=== PATIENT | female | born 1990 | race Caucasian/White ===

== ENCOUNTER 2018-09-12 18:53 | Observation (INO) | payer SELFPAY ==
[2018-09-12 22:11] LABS: #Eosinphils 0.3 thou/uL (0.0-0.7); #Monocytes 0.9 thou/uL (0.11-0.59); #Neutrophils 4.6 thou/uL (1.40-6.50); %Basophils 0.5 % (0.0-1.0); %Eosinophils 4.1 % (0.0-10.0); %Monocytes 11.8 % (0.0-10.0); %Neutrophils 58.7 % (42.0-75.0); Hemoglobin 11.6 g/dL (12.0-16.0); Mean Corpuscular Hemoglobin 31.9 pg (27.0-31.0); Mean Corpuscular Volume 96.4 fL (78.0-98.0); Mean Platelet Volume 6.6 fL (7.4-10.4); Platelet Count 292 thou/uL (130-400); RBC Distribution Width 12.5 % (11.5-14.5); Red Blood Cell (RBC) Count 3.64 mill/uL (4.20-5.40); White Blood Cell (WBC) Count 7.9 thou/uL (4.8-10.8)
[2018-09-12 22:19] LABS: BHCG - Serum Negative (NEGATIVE); Pregs Control Background? CLEAR/WHITE (CLR/WHITE); Pregs Control Bar Appear? YES (CONTROL BAR)
[2018-09-12 22:35] LABS: ALT (SGPT) 9 U/L (8-55); AST (SGOT) 22 U/L (5-34); Albumin 4.6 g/dL (3.5-5.0); Alkaline Phosphatase 62 U/L (40-150); Anion Gap 10 mmol/L (10-20); BUN (Urea Nitrogen) 15 mg/dL (7.0-18.7); Bilirubin, Total 0.6 mg/dL (0.2-1.2); Calc. Creatinine Clearance 0 mL/min (70-130); Calcium 9.4 mg/dL (7.8-10.44); Carbon Dioxide 28 mmol/L (22-29); Chloride 99 mmol/L (98-107); Estimated GFR-MDRD 90; Globulin 2.6 g/dL (2.4-3.5); Glucose 96 mg/dL (70-105); Potassium 3.5 mmol/L (3.5-5.1); Protein, Total 7.2 g/dL (6.0-8.3); Sodium 133 mmol/L (136-145)
--- NOTE | 2018-09-12 23:39 | MRI ---
MRI THORACIC SPINE WITH AND WITHOUT CONTRAST: INDICATIONS: Left lower extremity numbness. Radiculopathy. Decreased mobility. COMPARISON: No prior imaging comparison. FINDINGS: There is a right paracentral/subarticular disk protrusion with mild ventral cord flattening. No path ologic intramedullary enhancement. No additional extrinsic mass effect upon thecal sac contents with in the thoracic spine. There is no compression deformity. There is marrow edema, as well as osseous irregularity of the spinous process of the T6 level. This region demonstrates enhancement of the sp inous process, as well as the adjacent interspinous spaces. No acute disk space inflammation. No in trinsic cord signal abnormality. IMPRESSION: 1. Marrow edema and osseous irregularity, localizing to the approximate T6 spinous process level. T here is adjacent soft tissue enhancement of the interspinous spaces. Correlate for evidence of prior injury. Otherwise, a pathologic bone lesion should be excluded clinically. As necessary, followup of whole body bone scan may prove useful. 2. Disk protrusion at the T7-T8 level with mild ventral cord flattening. No associated intramedulla ry enhancement or significant intramedullary signal abnormality. POS: [facility]
--- NOTE | 2018-09-12 23:41 | MRI ---
MRI LUMBAR SPINE WITH AND WITHOUT CONTRAST: INDICATIONS: Left lower extremity radiculopathy. Limited mobility. FINDINGS: Pre and post contrast MR lumbar spine imaging performed, which does not reveal extrinsic mass effect upon the conus medullaris or the cauda equina. No mass producing enhancement of the vertebral canal evident. The conus medullaris terminates at the L1-L2 level. No acute marrow edema or disk space in flammation. Vertebral body height and disk space heights are preserved. There is patient motion dur ing the exam, which does limit assessment. IMPRESSION: No acute abnormality of the contrast enhanced lumbar spine. POS: [facility]
[2018-09-13] MEDS ORDERED: Acetaminophen 325 MG TAB ONE (01:48)
[2018-09-13] MEDS ORDERED: Nicotine 21 MG PATCH TOP SCH (02:15)
--- NOTE | 2018-09-13 07:49 | CT ---
CT HEAD NONCONTRAST: INDICATIONS: Lower extremity numbness. Immobility of lower extremities. Incidental note of jennifer cisterna magna. FINDINGS: There is a normal size of the ventricular system. No acute intracranial hemorrhage, mass effect, or midline shift. The visualized paranasal sinuses and mastoid air cells are clear. IMPRESSION: No acute intracranial abnormality. POS: [facility]
[2018-09-13 09:56] VITALS: BMI 22.1
[2018-09-13] MEDS ORDERED: Ketorolac Tromethamine 30 MG/ML VIAL IVP SCH (10:15)
--- NOTE | 2018-09-13 16:58 | CON ---
DATE OF CONSULTATION: This is a 30-minute initial patient evaluation, in which greater than 50% of the exam was spent in counseling and coordinating the patient's care. Remainder of the exam was spent in review of the patient's medical records and formulation of treatment plan as well as review of appropriate imaging studies. CHIEF COMPLAINT: Sudden onset of left foot weakness and left leg numbness. HISTORY OF PRESENT ILLNESS: Ms. Mcnulty is a 28-year-old female, who presents to [facility] for the above complaints. She states that yesterday afternoon, she was attempting to stand up when getting out of bed and noticed that she had significant weakness and decreased sensation into the left foot and lower leg. She states she has also had low back pain with left buttock, posterior thigh, and posterior calf pain. She denies falls. She states she has been unable to walk as such. She cannot feel the bottom of her foot. She denies bowel or bladder incontinence. 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 She states at that time she did not have significant pain into the neck, mid back, or low back, nor did she experience leg pain or weakness. She currently is an everyday smoker. She is not on blood thinners. She has not required assistive device for ambulation up until yesterday. Review of the patient's thoracic MRI shows a disk protrusion at T7-8, but does not cause any type of central foraminal stenosis. There is, however, a nondisplaced spinous process fracture at T6 that is likely acute given edema noted on [facility] imaging. Review of the patient's lumbar spine MRI is negative for central or neuroforaminal stenosis throughout the entirety of the lumbar spine and nothing that is causing significant compression to explain the patient's left foot drop and decreased sensation neurosurgically. PHYSICAL EXAMINATION: The patient is awake, alert, and appropriate. She has some anxiety and tremor with exam. She otherwise has full strength in the bilateral upper extremities and right lower extremity, but has give-way weakness and cogwheeling throughout the left hamstring, quadriceps, dorsiflexion, and plantar flexion. She appears to have decreased sensation in the left foot. Gait is not tested. She has no worrisome tenderness to palpation in the entirety of the spine. IMPRESSION AND DIAGNOSES: 1. Stable T6 spinous process fracture. 2. Subjective left foot weakness, decreased sensation in the left foot. PLAN: I discussed the patient's case imaging with Dr. Ellis. At this time, there is nothing neurosurgical to explain the patient's symptoms. I have let her know about her spinous process fracture and this is stable. Therefore, does not require any type of bracing or surgical intervention. I have also let her know about her thoracic disk extrusion, but again that is not compressive and is likely not causing her left lower extremity symptoms. I have let her know that she does not require neurosurgical intervention and that I have also discussed her case with Family Medicine residents. Neurology consult is warranted. She likely will benefit from pain management, perhaps even a Medrol Dosepak and physical therapy. Please call with any changes in the patient's neurologic status. Otherwise, at this time, Neurosurgery will sign off, but please do not hesitate to call with any questions or concerns. Job ID: [id number]
[2018-09-13] MEDS ORDERED: Acetaminophen 500 MG TAB PO PRN (18:29)
[2018-09-13] MEDS ORDERED: Ondansetron PF 4 MG/2 ML Vial IVP PRN (18:29)
[2018-09-13] MEDS ORDERED: Ondansetron ODT 4 MG TAB PO PRN (18:29)
--- NOTE | 2018-09-13 20:47 | HP ---
PRIMARY CARE PROVIDER: Dwayne Alvarez. CHIEF COMPLAINT: Back pain with left footdrop. HISTORY OF PRESENT ILLNESS: This is a 28-year-old female, who presents to [facility] Department complaining of left lower leg pain with associated left footdrop and back pain in the lower lumbar region. The patient states she got up after sleeping with tingling in her foot, attempting to stand when she fell on her left side. The patient denies any recent trauma or injury, but does state that she fell off a horse approximately two months prior to this evaluation, landing on her back. The patient also admits to previous discomfort in the left leg with shooting sensation down her thigh region to the knee after delivering her last child. The patient occasionally has shooting and electrical sensation down her left posterior thigh to the knee, but not the foot. The patient states she felt weakness in the foot and was unable to lift her toes or ankle and walk appropriately. The patient denied any other extremity involvement, headache, visual disturbance, fever, chills, recent exposure or vaccinations. 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 The patient denies any bowel or bladder incontinence. The patient initially rated the pain 8/10 in the lower back and left leg, currently 2/10. The patient denied taking any specific medications or home remedies. In the emergency room, the patient underwent general evaluation including MRI imaging of the lumbar and thoracic spine with thoracic spine imaging showing evidence of marrow edema and osseous irregularity in the T6 spinous process level. Disk protrusion also noted at T7 on T8 with mild ventral cord flattening. CT of the brain was unremarkable and the rest of the metabolic profile unrevealing. The patient received Tylenol 650 mg and nicotine patch. The patient was also evaluated by the neurosurgical service with recommendations for conservative management as the patient likely had previous injury status post fall with T6 spinous process injury. PAST MEDICAL HISTORY: 1. Left lower extremity radiculopathy. 2. History of atrial fibrillation. 3. Tobacco use. 4. Posttraumatic stress disorder. PAST SURGICAL HISTORY: 1. Status post appendectomy. 2. Status post section. CURRENT MEDICATIONS: 1. Ambien 10 mg p.o. at bedtime. 2. Motrin 600 mg p.o. q.6 hours p.r.n. ALLERGIES: NO KNOWN DRUG ALLERGIES. FAMILY HISTORY: No inheritable disease per patient's report. SOCIAL HISTORY: The patient has a boyfriend. Smokes a half a pack of cigarettes since the age of 17. Social alcohol use. No illicit drug use. 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 REVIEW OF SYSTEMS: CONSTITUTIONAL: Negative for weight loss or gain, ability to conduct usual activities. SKIN: Negative for rash, itching. EYES: Negative for double vision, pain. ENT/MOUTH: Negative for nose bleeding, neck stiffness, pain, tenderness. CARDIOVASCULAR: Negative for palpitations, dyspnea on exertion, orthopnea. RESPIRATORY: Negative for shortness of breath, wheezing, cough, hemoptysis, fever or night sweats. GASTROINTESTINAL: Negative for poor appetite, abdominal pain, heartburn, nausea, vomiting, constipation, or diarrhea. GENITOURINARY: Negative for urgency, frequency, dysuria, nocturia. MUSCULOSKELETAL: Negative for pain, swelling. NEUROLOGIC/PSYCHIATRIC: Negative for anxiety, depression. ALLERGY/IMMUNOLOGIC: Negative for skin rash, bleeding tendency. Otherwise, negative except as stated per HPI. PHYSICAL EXAMINATION: VITAL SIGNS: on admission, blood pressure 114/63, pulse 103, respiratory rate 18, temperature 98 degrees Fahrenheit, O2 saturation 100% on room air. GENERAL APPEARANCE: This is a 28-year-old female, alert and oriented x3, pleasant, in no acute distress. HEENT: Pupils are equal, round, reactive to light and accommodation. Extraocular muscles are intact. No scleral icterus. No conjunctival injection. Nares patent. OP is clear. Teeth in fair repair. NECK: Supple. No cervical adenopathy. No thyromegaly. No carotid bruits. No JVD appreciated. Cervical spine with full active and passive range of motion. No meningeal signs noted. CHEST: Lungs are clear to auscultation bilaterally. CARDIOVASCULAR: S1 and S2 without noted murmur, rub, or gallop. ABDOMEN: Flat, soft, nontender, and nondistended. Bowel sounds are positive in all 4 quadrants. There is no hepatosplenomegaly. No abdominal bruits. No rebound or guarding appreciated. EXTREMITIES: Warm and dry with fair turgor. No clubbing, cyanosis, or asymmetric edema appreciated. Pulses are palpable distally at the dorsalis pedis, posterior tibial, and popliteal arteries bilaterally. Capillary refill less 2 seconds. MUSCULOSKELETAL: Positive tenderness to palpation in the left SI joint region and lower lumbar paravertebral musculature. Positive tenderness to palpation in the left buttock and piriformis region. Good muscle tone noted throughout the remainder of the extremity exam. NEUROLOGIC: Cranial nerves 2 through 12 are grossly intact. Left-sided footdrop noted. DTRs showed 2/4 bilaterally in the upper and lower extremities. PERTINENT LAB AND X-RAY FINDINGS: Sodium 133, potassium 3.5, chloride 99, CO2 of 28, BUN 15, creatinine 0.76, glucose 96, calcium 9.4. LFTs within normal limits. Serum beta-HCG negative. CBC showed a white blood cell count of 7.9, hemoglobin 12, hematocrit 35, platelet count 292 with normal differential. ESR less than one. MRI imaging of the lumbar spine dated 09/12/2018 showed no acute process. Thoracic spine MRI dated 09/12/2018 showed marrow edema in osseous regularity localizing to the T6 spinous process level. Disk protrusion at T7 on T8 with mild ventral cord flattening. No associated enhancement or significant intramedullary signal abnormality. CT of the brain without contrast dated 09/13/2018 showed no acute intracranial process. ASSESSMENT AND PLAN: 1. Left footdrop. The patient will be observed on the medical floor. Exact etiology unclear. Questionable sciatic nerve involvement with peripheral neuropathy and questionable piriformis syndrome. We will initiate Solu-Medrol 40 mg IV q.6 hours with additional Toradol 30 mg IV q.6 hours. Continue to monitor for clinical response. 2. Low back pain. Suspect musculoskeletal in origin. We will continue treatment as outlined in #1. Symptomatic and supportive management. 3. T6 spinous process fracture. Appears old and likely occurred two months prior to this evaluation. Continue supportive management. No current evidence per neurosurgical consultation for intervention. 4. Tobacco use. We will offer smoking cessation resources prior to discharge. Transdermal nicotine as needed. 5. Prophylaxis. SCDs while in bed. General fall precautions. 6. Code status is full. Surrogate medical decision maker not identified. Job ID: [id number]
[2018-09-13] MEDS: Zolpidem Tartrate 5 MG TAB PO SCH (21:16)
[2018-09-14] MEDS: Ketorolac Tromethamine 30 MG/ML VIAL IVP SCH ×5 (00:27→23:23)
[2018-09-14] MEDS ORDERED: traMADol HCl 50 MG TAB PO PRN (12:08)
[2018-09-14] MEDS ORDERED: tiZANidine HCl 4 MG TAB PO SCH (12:15)
--- NOTE | 2018-09-14 14:10 | PDOC.PN ---
- Subjective Encounter Start Date: 09/14/18 Encounter Start Time: 13:50 Subjective: f/u for acute L foot drop of unclear etiology. Currently on Solumedrol -: and Toradol. States some tingling in L foot and some movement of toes -: No fever, chills, incontinence - Objective Resuscitation Status - Order Detail: 09/13/18 18:20 Resuscitation Status Routine Resuscitation Status: FULL: Full Resuscitation MAR Reviewed: Yes Vital Signs & Weight: Vital Signs (12 hours) Temp Pulse Resp BP BP Pulse Ox 09/14/18 11:35 98.6 F 83 16 122/78 97 09/14/18 09:29 98.3 F 97 14 117/79 99 09/14/18 07:43 98.3 F 97 14 117/79 99 09/14/18 04:00 98.4 F 75 20 117/84 97 Weight Weight 145 lb 15.983 oz Result Diagrams: 09/12/18 21:42 09/12/18 21:42 Phys Exam - Physical Examination Constitutional: NAD HEENT: PERRLA, sclera anicteric, oral pharynx no lesions Neck: no nodes, no JVD, supple, full ROM Respiratory: no wheezing, no rales, no rhonchi, clear to auscultation bilateral S1, S2 Cardiovascular: RRR, no significant murmur, no rub, gallop Gastrointestinal: soft, non-tender, no distention, positive bowel sounds Musculoskeletal: no edema, pulses present L foot drop, sensation intact Neurological: moves all 4 limbs Psychiatric: normal affect, A&O x 3 Skin: normal turgor, cap refill <2 seconds Dx/Plan (1) Left foot drop Code(s): M21.372 - FOOT DROP, LEFT FOOT Status: Acute Comment: Etiology unclear, suspected sciatica/piriformis syndrome, continue Solumedrol 80mg IV q6h , Toradol 30mg IV q6h, consult Neurology today (2) Acute left-sided low back pain Code(s): M54.5 - LOW BACK PAIN Status: Acute Comment: Suspect myalgia, Toradol, Solumedrol and Tramadol, muscle relaxants (3) Fracture of spinous process of thoracic vertebra Code(s): S22.008A - OTH FRACTURE OF UNSP THORACIC VERTEBRA, INIT FOR CLOS FX Status: Chronic Comment: Suspected chronic, conservative mgmt (4) Tobacco abuse Code(s): Z72.0 - TOBACCO USE Status: Chronic Comment: Nicotine patch - Plan PT/OT, out of bed/ambulate Stable currently -: Continue Solumedrol -: Add Tramadol -: Continue Zanaflex -: Consult Neurology regarding foot drop * .
[2018-09-14] MEDS: Nicotine 21 MG PATCH TD SCH (14:44)
[2018-09-14] MEDS: traMADol HCl 50 MG TAB PO PRN (18:40)
[2018-09-14] MEDS: tiZANidine HCl 4 MG TAB PO SCH (21:45)
[2018-09-14] MEDS: Zolpidem Tartrate 5 MG TAB PO SCH (21:45)
[2018-09-15] MEDS: traMADol HCl 50 MG TAB PO PRN ×2 (06:03→14:07)
[2018-09-15] MEDS: Ketorolac Tromethamine 30 MG/ML VIAL IVP SCH ×2 (06:07→11:49)
[2018-09-15] MEDS: tiZANidine HCl 4 MG TAB PO SCH ×2 (09:31→14:07)
[2018-09-15] MEDS ORDERED: predniSONE 20 MG TAB PO SCH (10:30)
[2018-09-15] MEDS: Nicotine 21 MG PATCH TD SCH (14:07)
[2018-09-15 15:32] VITALS: BP 137/79; TEMP 98.3
--- NOTE | 2018-09-16 00:16 | DIS ---
DATE OF ADMISSION: 09/13/2018 DATE OF DISCHARGE: 09/15/2018 DISCHARGE DIAGNOSES: 1. Acute left foot drop, etiology unclear, mild improvement. 2. Acute left-sided lower back pain. 3. T6 thoracic vertebra spinous process fracture, chronic. 4. Tobacco use. CONSULTATIONS: Tae Hodge MD with Neurology Service. Neurosurgical Service. PERTINENT LAB AND X-RAY FINDINGS: Basic metabolic profile within normal limits. Serum beta HCG negative. CBC showed a white blood cell count of 7.9, hemoglobin 12, hematocrit 35, platelet count 292. ESR less than 1. Lumbar spine MRI dated 09/12/2018, negative. Thoracic spine MRI dated 09/12/2018 showed T6 spinous process fracture. Disk protrusion at T7 on T8 level with mild ventral cord flattening. CT of the brain without contrast dated 09/13/2018 showed no acute intracranial process. HOSPITAL COURSE: The patient was observed on the medical floor after initially presenting with acute left foot drop. The patient underwent extensive evaluation including MRI imaging of the thoracic and lumbar spine, as well as CT imaging of the brain showing essentially negative findings except for evidence of a T6 spinous process fracture, likely subacute. The patient underwent metabolic screening which was unrevealing and patient received IV Solu-Medrol, Toradol, and Zanaflex for symptomatic relief. The patient was also evaluated by Neurosurgical Service due to the T6 spinous process fracture, however, no specific recommendations for an acute surgical intervention recommended. The patient was evaluated by the Neurology Service with recommendations for prednisone therapy for 10 days after discharge. The patient was also placed on AFO splint for the left foot and recommended for outpatient followup. Overall, the patient did remain clinically stable through the remainder of the hospital course. I have examined the patient time of discharge and discussed followup instructions. The patient verbalized understanding and agreement ready for discharge on 09/15/2018. DISCHARGE MEDICATIONS: 1. Prednisone 20 mg one tablet p.o. daily x10 days. 2. Zanaflex 4 mg p.o. t.i.d. 3. Ambien 10 mg p.o. at bedtime. 4. Ibuprofen 800 mg p.o. t.i.d. p.r.n. FOLLOWUP: The patient may follow up with Dr. Tae Hodge, with Neurology Service within 10 days of discharge. CONDITION ON DISCHARGE: Stable. ACTIVITY: Ad-kelli. DIET: Regular. CODE STATUS: Full. DISPOSITION: Home on 09/15/2018. Job ID: [id number]
[2018-09-16 15:45] LABS: ANA Symphony (Qualitative) Negative (Negative); ANA Symphony (Quantitative) 0.1 Ratio (< 0.7 Negative); SSA/Ro IgG Antibody Less than 0.3 EliAU/mL (<7 Negative); SSB/La IgG Antibody 0.3 EliAU/mL (<7 Negative); dsDNA IgG Antibody 2.3 IU/mL (<10 Negative)
[2018-09-19 18:09] LABS: Cytoplasmic (C-ANCA) <1:20 titer (Neg:<1:20); Myeloperoxidase AutoAbs <9.0 U/mL (0.0-9.0); Perinuclear (P-ANCA) <1:20 titer (Neg:<1:20); Proteinase-3 AutoAbs Less than 3.5 U/mL (0.0-3.5)
== END 2018-09-15 15:55 | disposition home or self-care (01) ==
LOC: ERS 18:53 → ERHOLD 09-13 01:13 → T4-B 09-13 17:13
PROVIDERS: ADMIT Internal Medicine; ATTEND Internal Medicine
DX: S22.058A Other fracture of T5-T6 vertebra, initial encounter for closed fracture (principal); M51.14 Intervertebral disc disorders with radiculopathy, thoracic region; M21.372 Foot drop, left foot; I48.91 Unspecified atrial fibrillation; F17.210 Nicotine dependence, cigarettes, uncomplicated; F43.10 Post-traumatic stress disorder, unspecified; Z90.49 Acquired absence of other specified parts of digestive tract; Z79.52 Long term (current) use of systemic steroids; Z79.82 Long term (current) use of aspirin; Z79.899 Other long term (current) drug therapy; Z98.890 Other specified postprocedural states
CPT/HCPCS: 36415; 70450; 72157; 72158; 80053; 83520; 84703; 85025; 85652; 86038; 86225; 86235; 86256; 96374; 96375; 96376; G0378; J1885; J2920; J7506